=== PATIENT | male | born 1985 | race Caucasian/White ===

== ENCOUNTER 2018-09-26 11:48 | Emergency (ER) | payer OTHER ==
[~2018-09-26] VITALS: Ht 182.9 cm; Wt 117.9 kg
[2018-09-26] MEDS ORDERED: ACETAMINOPHEN 325 MG TABLET PO ONE (12:15)
[2018-09-26] MEDS ORDERED: IBUPROFEN 800 MG (MOTRIN) TAB PO ONE (12:15)
[2018-09-26] MEDS ORDERED: ACET325T38 PO (12:16)
[2018-09-26] MEDS ORDERED: IBUP-1780 PO (12:16)
--- NOTE | 2018-09-26 12:16 | ED Lower Extremity ---
General Chief Complaint: Lower Extremity Stated Complaint: WC ANK INJ History of Present Illness Date Seen by Provider: Sep 26, 2018 Time Seen by Provider: 12:00 Initial Comments The patient is a 33-year-old male with a history of acid reflux and no other known medical problems. He presents with concern for left ankle pain following an eversion injury in which he landed wrong on his foot after stepping down from a work truck. Denies hitting head or hurting any other part of his body during the episode. Unable to ambulate on the foot secondary to discomfort since the injury. No other concerns today. No therapy prior to arrival. Allergies and Home Medications Allergies Coded Allergies: No Known Drug Allergies (Unverified , 09/26/18) Home Medications Acetaminophen 325 Mg Tablet, 975 MG PO Q8H Prescribed by: AMAN TOVAR on 09/26/18 1216 Ibuprofen 800 Mg Tablet, 800 MG PO Q8H PRN for PAIN Prescribed by: AMAN TOVAR on 09/26/18 1216 Patient Home Medication List Home Medication List Reviewed: Yes Review of Systems Constitutional: see HPI All Other Systems Reviewed Negative Unless Noted: Yes Past Fahvacf-Jkvgfl-Ipfsbe Hx Past Med/Social Hx: Reviewed Nursing Past Med/Soc Hx Family Medical History Reviewed Nursing Family Hx Physical Exam Vital Signs Vital Signs - First Documented 09/26/18 09/26/18 11:50 12:18 Temp 97.8 Pulse 82 Resp 22 B/P (MAP) 119/84 (96) Pulse Ox 22 O2 Delivery Room Air Capillary Refill : Height, Weight, BMI Height: '" Weight: lbs. oz. kg; BMI Method: General Appearance: no apparent distress This is a younger male appearing nontoxic and in no acute distress. Head is normocephalic and atraumatic. Neck is supple and nontender. Oropharynx is moist. Lungs are clear to auscultation at all stations. There is normal S1 and S2 without rubs or gallops and capillary refill is appropriate, less than 2 seconds globally. Abdomen is soft, nontender and nondistended. Skin is warm and dry without cyanosis, clubbing or edema. Psychiatrically, the patient demonstrates appropriate mood and affect and is alert. For a musculoskeletal standpoint, evaluation of the left lower extremity reveals significant tenderness and swelling over the lateral malleolus of the left ankle with more mild tenderness noted over the medial malleolus. There is no tenderness over the base of the fifth metatarsal or the navicular bone. The left lower extremity is neurovascularly intact with strength 5 out of 5, sensation intact to light touch in all nerve distributions, DP and PT pulses 2+, capillary refill less than 2 seconds, foot warm and well perfused. Progress/Results/Core Measures Results/Orders My Orders Orders - AMAN TOVAR MD Ankle 3 View Left (09/26/18 12:06) Tibia Fibula 2 View Left (09/26/18 12:06) Ibuprofen Tablet (Motrin Tablet) (09/26/18 12:15) Acetaminophen Tablet/Caplet (Tylenol T (09/26/18 12:15) Ice: Apply To Affected Area (09/26/18 12:17) Vital Signs/I&O 09/26/18 09/26/18 11:50 12:18 Temp 97.8 97.8 Pulse 82 82 Resp 22 B/P (MAP) 119/84 (96) 119/74 (89) Pulse Ox 22 96 O2 Delivery Room Air Progress Progress Note : Time: 12:14 Progress Note History and clinical examination are suspicious for severe left ankle sprain versus ankle fracture. We will check plain films and give medication for analgesia as noted and then reevaluate. Update 1238: plain films with no evidence of fracture. We will treat as severe sprain with air splint and crutches and ibuprofen for discomfort. Patient counseled to follow up with primary care physician in the next 2-4 days and to return immediately to the emergency department if symptoms worsen or if other new symptoms of concern develop. All questions were answered. We will proceed with discharge home at this time. Diagnostic Imaging Diagonstic Imaging: Xray Comments ANKLE 3 VIEW LEFT INDICATION: Pain status post injury COMPARISON: None. FINDINGS: 3 views of the left ankle were obtained. There is no acute fracture or dislocation. No focal osseous lesions are seen. There is mild lateral soft tissue swelling. There are no radiopaque foreign bodies. IMPRESSION: 1. Mild lateral soft tissue swelling of the left ankle, but no evidence of underlying acute fracture or dislocation. Dictated on workstation # [id number] TIBIA FIBULA 2 VIEW LEFT INDICATION: Injury COMPARISON: None. FINDINGS: 3 views of the left tibia and fibula show no fractures, dislocations, or other acute bony abnormalities identified. Joint spaces are well maintained throughout. There is mild soft tissue swelling of the lateral left ankle. No radiopaque foreign bodies are identified. IMPRESSION: No acute fractures or dislocations of the left tibia or fibula. Dictated on workstation # [id number] Departure Impression Primary Impression: Acute left ankle pain Disposition: HOME, SELF-CARE Condition: Improved Departure-Patient Inst. Referrals: DANIELLE SOTO MD (PCP/Family) Primary Care Physician Patient Instructions: Knee Sprain (DC) Scripts Acetaminophen (Tylenol) 325 Mg Tablet 975 MG PO Q8H for Pain, #60 TAB Prov: AMAN TOVAR MD 09/26/18 Ibuprofen (Ibuprofen) 800 Mg Tablet 800 MG PO Q8H PRN for PAIN, #30 TAB 0 Refills Prov: AMAN TOVAR MD 09/26/18 AMAN TOVAR MD Sep 26, 2018 12:16
[2018-09-26 12:18] VITALS: BP 119/74
--- NOTE | 2018-09-26 12:23 | Diagnostic Imaging Report ---
INDICATION: Pain status post injury COMPARISON: None. FINDINGS: 3 views of the left ankle were obtained. There is no acute fracture or dislocation. No focal osseous lesions are seen. There is mild lateral soft tissue swelling. There are no radiopaque foreign bodies. IMPRESSION: 1. Mild lateral soft tissue swelling of the left ankle, but no evidence of underlying acute fracture or dislocation. Dictated by: Dictated on workstation # [id number]
--- NOTE | 2018-09-26 12:27 | Diagnostic Imaging Report ---
INDICATION: Injury COMPARISON: None. FINDINGS: 3 views of the left tibia and fibula show no fractures, dislocations, or other acute bony abnormalities identified. Joint spaces are well maintained throughout. There is mild soft tissue swelling of the lateral left ankle. No radiopaque foreign bodies are identified. IMPRESSION: No acute fractures or dislocations of the left tibia or fibula. Dictated by: Dictated on workstation # [id number]
--- OUTSIDE RECORDS SUMMARY | 2018-09-26 17:52 | XMS REPORT | Continuity of Care Document ---
Author Organization Unknown Address Unknown Allergies There is no data. Medications There is no data. Problems There is no data. Procedures There is no data. Results There is no data. Encounters ACCT No. Visit Date/Time Discharge Status Pt. Type Provider Facility Loc./Unit Complaint [id number] 08/13/2018 12:00:00 08/13/2018 23:59:59 CLS Outpatient [facility]
== END 2018-09-26 13:12 | disposition home or self-care (01) ==
LOC: ER FS 11:51
DX: M25.572 Pain in left ankle and joints of left foot (principal); K21.9 Gastro-esophageal reflux disease without esophagitis; V48.4XXA Person boarding or alighting a car injured in noncollision transport accident, initial encounter; X50.1XXA Overexertion from prolonged static or awkward postures, initial encounter; Y92.59 Other trade areas as the place of occurrence of the external cause; Y99.0 Civilian activity done for income or pay
CPT/HCPCS: 73590; 73610

== ENCOUNTER → 2018-10-17 | Outpatient (CLI) | payer OTHER ==
[~2018-10-17] MED LIST: ACET325T38 PO; IBUP-1780 PO
--- NOTE | 2018-10-17 09:35 | Diagnostic Imaging Report ---
Indication: Left ankle sprain. Time of exam 8:44 AM Correlation is made with prior ankle radiographs from 09/26/2018. Ankle mortise is well-maintained. Talar dome is smooth. Degree of soft tissue swelling about the lateral ankle has improved since prior exam. No fracture or dislocation is seen. Impression: Improved soft tissue swelling. No acute bony abnormality is detected. Dictated by: Dictated on workstation # [id number]
== END ==
LOC: RAD FS 08:55
PROVIDERS: ATTEND Nurse Practitioner
DX: S93.492A Sprain of other ligament of left ankle, initial encounter (principal)
CPT/HCPCS: 73610

== ENCOUNTER 2018-12-20 05:46 | Outpatient (CLI) | payer BC ==
[~2018-12-20] VITALS: Ht 182.9 cm; Wt 113.4 kg
[2018-12-20] MEDS ORDERED: PANT40TA3 PO (13:45)
== END 2018-12-20 13:46 | disposition home or self-care (01) ==
LOC: PREOP 05:46
PROVIDERS: ATTEND Surgery
DX: Z01.818 Encounter for other preprocedural examination (principal)

== ENCOUNTER 2018-12-27 11:37 | Day surgery (SDC) | payer BC ==
[2018-12-27] VITALS (16 sets, daily range): BP systolic 102–125; BP diastolic 57–85
[~2018-12-27] VITALS: Ht 182.9 cm; Wt 113.4 kg
[~2018-12-27 11:37] MED LIST changes: +PANT40TA3 PO
[2018-12-27] MEDS ORDERED: FLUMAZENIL (ROMAZICON) 0.1 MG/ML 5 ML VIAL IV ONE ×2 (11:38→14:45)
[2018-12-27] MEDS ORDERED: NALOXONE 0.4 MG/ML 1 ML (NARCAN) VIAL IV ONE ×2 (11:38→14:45)
[2018-12-27] MEDS ORDERED: NS IV 500 ML 500 ML IV PRN (11:55)
[2018-12-27] MEDS ORDERED: LIDOCAINE JELLY 2% 6 ML SYRINGE MM PRN (12:00)
[2018-12-27] MEDS ORDERED: fentaNYL INJECTION 100 MCG/2 ML AMP IVP ONE (12:00)
[2018-12-27] MEDS ORDERED: MIDAZOLAM 2 MG/2 ML (VERSED) VIAL IVP ONE (12:00)
[2018-12-27] MEDS ORDERED: HURRICAINE EXT TUBE (BENZOCAINE) XX PRN (12:00)
[2018-12-27] MEDS ORDERED: fentaNYL INJECTION 100 MCG/2 ML AMP ONE ×4 (13:23→13:38)
[2018-12-27] MEDS ORDERED: MIDAZOLAM 2 MG/2 ML (VERSED) VIAL ONE ×6 (13:23→13:38)
[2018-12-27] MEDS ORDERED: LIDOCAINE JELLY 2% 6 ML SYRINGE ONE (13:29)
--- NOTE | 2018-12-27 13:38 | Progress Note-Pre Operative ---
Pre-Operative Progress Note H&P Reviewed The H&P was reviewed, patient examined and no changes noted. Date Seen by Provider: Dec 27, 2018 Time Seen by Provider: 13:00 Date H&P Reviewed: Dec 27, 2018 Time H&P Reviewed: 13:00 Pre-Operative Diagnosis: GERD GEORGIA GOLDBERG MD Dec 27, 2018 13:38
--- NOTE | 2018-12-27 13:38 | Conscious Sedation/ASA ---
Conscious Sedation Pre-Proced Time 13:00 ASA Score 2 For ASA 3 and 4: Consider anesthesia and medical clearance. Also, for patients with a history of failed moderate sedation consider anesthesia. Airway Lungs Heart ASA score ASA 1: a normal healthy patient ASA 2: a patient with a mild systemic disease (mid diabetes, controlled hypertension, obesity ASA 3: a patient with a severe systemic disease that limits activity (angina, COPD, prior Myocardial infarction) ASA 4: a patient with an incapacitating disease that is a constant threat to life (CHF, renal failure) ASA 5: a moribund patient not expected to survive 24 hrs. (ruptured aneurysm) ASA 6: a declared brain- patient whose organs are being harvested. For emergent operations, add the letter E after the classification Mallampati Classification Grade 2 Sedation Plan Analgesia, Amnesia, Plan communicated to team members, Discussed options with patient/fam, Discussed risks with patient/fam The patient is an appropriate candidate to undergo the planned procedure, sedation, and anesthesia. The patient immediately re-assessed prior to indication. GEORGIA GOLDBERG MD Dec 27, 2018 13:38
--- NOTE | 2018-12-27 13:40 | Discharge Inst-Surgical ---
D/C Lap Instructions-YUSUF Follow Up Activity as tolerated High Fiber Diet 25g or more per day Avoid Alcohol, Caffeine, Spicy [place] and Acid foods. Drink 64 fluid oz or more of fluids per day. Symptoms to Report: Fever over 101 degree F, Nausea/Vomiting If any problems/questions: Contact your physician or go to Emergency Room GEORGIA GOLDBERG MD Dec 27, 2018 13:40
[2018-12-27] MEDS ORDERED: morphine INJ 10 MG/ML 1ML (SYR OR VIAL) IVP PRN ×2 (13:45)
[2018-12-27] MEDS ORDERED: ACETAMINOPHEN 325 MG TABLET PO PRN (13:45)
[2018-12-27] MEDS ORDERED: ONDANSETRON 4 MG/2 ML (SDV) Z0FRAN IVP PRN (13:45)
[2018-12-27] MEDS ORDERED: HYDROcodone/APAP 5 MG/325 MG (LORTAB) TAB PO PRN (13:45)
--- NOTE | 2018-12-27 14:03 | Progress Note-Post Operative ---
Post-Operative Progess Note Surgeon (s)/Critical Care Registered Nurse (s) Surgeon GEORGIA GOLDBERG MD Critical Care Registered Nurse: none Pre-Operative Diagnosis GERD Post-Operative Diagnosis reflux esophagitis(stage 2), small HH(1.5cm), moderate gastritis. Procedure & Operative Findings Date of Procedure 12/27/18 Procedure Performed/Findings EGD with bx. Anesthesia Type cs Estimated Blood Loss Estimated blood loss (mL): minimal Specimens/Packing Specimens Removed ge jxn, antrum GEORGIA GOLDBERG MD Dec 27, 2018 14:03
--- NOTE | 2018-12-27 15:00 | NUR ---
PT READY FOR DC. PT VOIDED, WATER & COKE GIVEN. AT BEDSIDE TO ESCORT HOME. PT VIA WC TO PERSONAL VEHICLE. PT A/O x4 WITHOUT COMPLAINT.
--- NOTE | 2018-12-27 15:43 | OPERATIVE REPORT ---
DATE OF SERVICE: 12/27/2018 ATTENDING PRIMARY CARE PHYSICIAN: Zita Bunch MD PREOPERATIVE DIAGNOSIS: Gastroesophageal reflux disease. POSTOPERATIVE DIAGNOSES: Reflux esophagitis stage II, small hiatal hernia approximately 1.5 cm in size, moderate gastritis. PROCEDURE: EGD with biopsy. SURGEON: Georgia Goldberg MD ANESTHESIA: Conscious sedation. ESTIMATED BLOOD LOSS: Minimal. FINDINGS: Reflux esophagitis stage II, small hiatal hernia approximately 1.5 cm in size, moderate gastritis. DISPOSITION: The patient tolerated the procedure well. INDICATIONS: The patient is a 33-year-old male who has had epigastric burning sensation as well as crampy pain that has progressed over time and he does report occasional episodes of regurgitation. He also does report some intermittent episodes of nausea associated with these symptoms as well. DESCRIPTION OF PROCEDURE: The patient was brought to the endoscopy suite, laid in left lateral decubitus position. After adequate IV pain and sedating medications and conscious sedation anesthesia, the mouthpiece was applied. The endoscope was placed in the mouth, visualizing the pharynx and hypopharyngeal region. Vocal cords, epiglottis and vallecula identified and appeared to be normal. The endoscope was then gently intubated into the esophageal opening and esophagus insufflated. The endoscope was then advanced to the first, second and third portions of the esophagus at the level of the GE junction, a reflux esophagitis stage II identified. A biopsy was taken of the GE junction with visualization of good hemostasis. The endoscope was then advanced in the stomach and endoscope retroflexed, visualizing a small hiatal hernia approximately 1.5 cm in size. There was a moderate severity gastritis towards the stomach antrum. No formal ulcerations, polyps, or any neoplasms. A biopsy was taken of the antrum to rule out H. pylori with visualization of good hemostasis. The endoscope was then advanced to the pylorus and the first and second portion of the duodenum, which appeared normal with no distal obstructions. The endoscope was then slowly withdrawn while taking a second look and suctioning of residual air with residual air with no additional findings. The patient tolerated the procedure well. We will recommend continued medical management with the necessary lifestyle and diet accommodation including small and more frequent meals, avoidance of eating at night as well as head elevation while lying supine. He also needs to avoid caffeinated beverages, spicy, greasy and acidic foods. We also want him to continue with Protonix 40 mg daily. If he has continued episodes despite maximal medical therapy, this may be a gallbladder etiology and we will presume with an ultrasound as well as possible HIDA scan. Job ID: [id number] DocumentID: [id number] Dictated Date: 12/27/2018 14:07:13 Field Coordinator Date: 12/27/2018 15:41:45 Dictated By: GEORGIA GOLDBERG MD
== END 2018-12-27 15:00 | disposition home or self-care (01) ==
LOC: ENDO 11:37
PROVIDERS: ATTEND Surgery
DX: K21.0 Gastro-esophageal reflux disease with esophagitis (principal); K29.70 Gastritis, unspecified, without bleeding; K44.9 Diaphragmatic hernia without obstruction or gangrene; K31.89 Other diseases of stomach and duodenum; Z90.89 Acquired absence of other organs; Z87.891 Personal history of nicotine dependence; Z83.2 Family history of diseases of the blood and blood-forming organs and certain disorders involving the immune mechanism; Z82.49 Family history of ischemic heart disease and other diseases of the circulatory system; Z79.899 Other long term (current) drug therapy

== ENCOUNTER 2019-06-17 13:51 | Emergency (ER) | payer BC, OTHER ==
[~2019-06-17] VITALS: Ht 182.8 cm; Wt 120.0 kg
[2019-06-17 13:55] VITALS: BP 146/80
--- NOTE | 2019-06-17 14:11 | ED Back Pain ---
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 He states that movement, palpation, and deep breaths make the pain worse. He denies having any discomfort prior to this incident. He is alert and oriented 4, calm, and appears to be no distress. He denies shortness of breath. Location: Other (left lower ribs) Timing/Duration: 1 Hour Severity: Moderate Method of Injury: Other (twisting) Modifying Factors: Improves With Movement (makes it worse) Associated Symptoms: denies symptoms Allergies and Home Medications Allergies Coded Allergies: No Known Drug Allergies (Unverified , 09/26/18) Home Medications Pantoprazole Sodium 40 Mg Tablet.dr, 40 MG PO DAILY, (Reported) Patient Home Medication List Home Medication List Reviewed: Yes Review of Systems Constitutional: no symptoms reported EENTM: no symptoms reported Respiratory: no symptoms reported Cardiovascular: no symptoms reported Gastrointestinal: no symptoms reported Genitourinary: no symptoms reported Musculoskeletal: other (left lateral lower chest wall/rib pain) Skin: no symptoms reported Psychiatric/Neurological: No Symptoms Reported All Other Systems Reviewed Negative Unless Noted: Yes Past Uyirqvw-Njdjau-Ayppip Hx Past Med/Social Hx: Reviewed Nursing Past Med/Soc Hx Patient Social History Alcohol Use: Denies Use Recreational Drug Use: No Smoking Status: Former Smoker Type Used: Smokeless Tobacco Former Smoker, Quit: Dec 21, 2015 2nd Hand Smoke Exposure: No Recent Foreign Travel: No Contact w/Someone Who Travel: No Recent Hopitalizations: No Physical Abuse: No Sexual Abuse: No Mistreated: No Fear: No Immunizations Up To Date Tetanus Booster (TDap): Unknown Seasonal Allergies Seasonal Allergies: No Past Medical History Surgeries: No Tonsillectomy Respiratory: No Cardiac: No Neurological: No Genitourinary: No Gastrointestinal: Yes Gastroesophageal Reflux Musculoskeletal: No Endocrine: No HEENT: No Cancer: No Psychosocial: No Integumentary: No Blood Disorders: No Physical Exam Vital Signs Vital Signs - First Documented 06/17/19 13:55 Temp 36.6 Pulse 80 Resp 16 B/P (MAP) 146/80 (102) Pulse Ox 98 O2 Delivery Room Air Capillary Refill : Height, Weight, BMI Height: 6'0.00" Weight: 250lbs. 0.0oz. 113.792844op; 33.9 BMI Method:Stated General Appearance: No Apparent Distress, WD/WN HEENT: PERRL/EOMI, Pharynx Normal Neck: Full Range of Motion, Normal Inspection, Non Tender Cardiovascular: Regular Rate, Rhythm, No Edema, No Murmur Respiratory: Chest Non Tender, Lungs Clear, Normal Breath Sounds, No Respiratory Distress Gastrointestinal: Normal Bowel Sounds, Non Tender, Soft Back: No CVA Tenderness, No Vertebral Tenderness, Other (ttp over left lateral lower ribs, no subcutaneous emphysema, no deformity, no ecchymosis) Extremity: Normal Capillary Refill, Non Tender, No Calf Tenderness Neurologic/Psychiatric: Alert, Oriented x3, No Motor/Sensory Deficits, Normal Mood/Affect Skin: Normal Color, Warm/Dry Progress/Results/Core Measures Results/Orders My Orders Orders - SNATI LOBATO DO Ribs 2-3 View Left (06/17/19 14:02) Ketorolac Injection (Toradol Injection) (06/17/19 14:15) Medications Given in ED Current Medications Medications Dose Ordered Sig/Cristiano Route Start Time Stop Time Status Last Admin Dose Admin Ketorolac Tromethamine 60 mg ONCE ONCE IM 06/17/19 14:15 06/17/19 14:16 DC 06/17/19 14:15 60 MG Vital Signs/I&O 06/17/19 13:55 Temp 36.6 Pulse 80 Resp 16 B/P (MAP) 146/80 (102) Pulse Ox 98 O2 Delivery Room Air Progress Progress Note : Progress Note @1440 - Patient updated on imaging results which are acutely unremarkable. The patient likely has a non-displaced rib fracture and or an intercostal muscle injury. Advised taking ibuprofen at home for pain relief. The patient will also be given Ultram for the likely muscle versus nondisplaced rib fracture injury as he appears quite uncomfortable. Advised follow-up with occupational health in the next 2-3 days and return to the Emergency Department immediately for new or worsening symptoms. The patient expresses verbal understanding and agreement with the plan and is stable for discharge. Diagnostic Imaging Diagonstic Imaging: [facility]ray Comments [facility] [place], [place] NAME: BELÉN MENDIOLA [facility] REC#: [id number] PT STATUS: REG ER : 1985 PHYSICIAN: SANTI LOBATO DO ADMIT DATE: 06/17/19/ER FS Draft Date of Exam:06/17/19 RIBS 2-3 VIEW LEFT INDICATION: Left-sided pain following injury. No lung contusion, pneumothorax or hemothorax. No free air beneath the left diaphragm. Cardiomediastinal and hilar contours were normal. No bony destructive process or fracture deformity. No abnormal periosteal reaction. IMPRESSION: Unremarkable left rib series. Dictated on workstation # [id number] Dict: 06/17/19 1418 Trans: 06/17/19 1421 [employer] [facility] [id number] Interpreted by: SHELBI GUTIERREZ Electronically signed by: Departure Impression Primary Impression: Rib pain on left side Disposition: HOME, SELF-CARE Condition: Stable Departure-Patient Inst. Decision time for Depature: 14:42 Referrals: DANIELLE SOTO MD (PCP/Family) Primary Care Physician Patient Instructions: Muscle Strain, Rib Fractures in Adults Add. Discharge Instructions: Take ibuprofen or Tylenol home for pain relief. If that is not helping then take the prescribed pain medication as directed. Follow-up with occupational health in the next 1-2 days. Do not lift over 10 pounds until cleared by occupational health. Scripts Tramadol HCl (Ultram) 50 Mg Tablet 50 MG PO Q6H PRN for PAIN-MODERATE (5-7) for 5 Days, #15 TAB Prov: SANTI LOBATO DO 06/17/19 SANTI LOBATO DO Jun 17, 2019 14:11
[2019-06-17] MEDS ORDERED: KETOROLAC 60 MG/2 ML VIAL IM ONE (14:15)
--- NOTE | 2019-06-17 14:21 | Diagnostic Imaging Report ---
INDICATION: Left-sided pain following injury. No lung contusion, pneumothorax or hemothorax. No free air beneath the left diaphragm. Cardiomediastinal and hilar contours were normal. No bony destructive process or fracture deformity. No abnormal periosteal reaction. IMPRESSION: Unremarkable left rib series. Dictated by: Dictated on workstation # [id number]
[2019-06-17] MEDS ORDERED: TRAM-42 PO (14:48)
== END 2019-06-17 14:56 | disposition home or self-care (01) ==
LOC: EDUNIT# 13:51 → ER FS 13:52
DX: R07.81 Pleurodynia (principal); K21.9 Gastro-esophageal reflux disease without esophagitis; Z87.891 Personal history of nicotine dependence; X50.1XXA Overexertion from prolonged static or awkward postures, initial encounter; Y92.59 Other trade areas as the place of occurrence of the external cause
CPT/HCPCS: 71100; 96372; 99281